=== PATIENT | female | born 1955 | race Two or more races ===

== ENCOUNTER 2024-04-23 07:57 | Outpatient (CLI) | payer OTHER | END 2024-04-23 08:00 | disposition home or self-care (01) | LOC: NUCLEAR 07:57 | PROVIDERS: ATTEND Surgery | DX: C50.412 Malignant neoplasm of upper-outer quadrant of left female breast (principal) | CPT/HCPCS: 78816; A9552 ==

== ENCOUNTER 2024-05-30 13:31 | Outpatient (CLI) | payer OTHER | END 2024-05-30 13:42 | disposition home or self-care (01) | LOC: SONOGRAMA 13:31 | PROVIDERS: ATTEND Surgery | DX: N60.12 Diffuse cystic mastopathy of left breast (principal) ==

== ENCOUNTER 2024-05-30 14:44 | Outpatient (CLI) | payer OTHER | END 2024-05-30 14:56 | disposition home or self-care (01) | LOC: LAB 14:44 | PROVIDERS: ATTEND Surgery | DX: N61.1 Abscess of the breast and nipple (principal) ==